=== PATIENT | female | born 1995 | race Caucasian/White ===

== ENCOUNTER 2019-11-02 06:18 | Emergency (ER) | payer BC, MEDICAID, SELFPAY ==
[2019-11-02 06:20] VITALS: BP 132/78; PULSE 71; RESP 18; TEMP 36.8; O2SAT 98; BMI 20.1
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
--- NOTE | 2019-11-02 07:10 | EKG12_ITS ---
Test Reason : MEDICAL CLEARANCE Blood Pressure : / mmHG Vent. Rate : 074 BPM Atrial Rate : 074 BPM P-R Int : 140 ms QRS Dur : 074 ms QT Int : 380 ms P-R-T Axes : 076 086 069 degrees QTc Int : 421 ms Normal sinus rhythm with sinus arrhythmia Normal ECG Confirmed by COLLEEN SOTELO, ÓSCAR ([id number]), social media editor MIL GTZ ([id number]) on 11/04/2019 10:52:15 AM Referred By: JUAN Confirmed By:ÓSCAR MACIAS MD
--- NOTE | 2019-11-02 07:10 | ED.RN ---
no suicide precautions per dr watters
[2019-11-02 07:24] LABS: Mucous, Urine 0 SEEN /hpf (<or=2+)
[2019-11-02 07:29] LABS: Color, Urine Yellow (Yellow); Glucose, Dipstick Normal (Normal); Ketone-Dipstick 15 mg/dl (Negative); Leukocyte Esterase-Dipstick 25 /ul (Negative); Nitrite-Dipstick Negative (Negative); Occult Blood-Urine 10 /ul (Negative); Protein-Dipstick Negative (Negative); Urine Bilirubin Dipstick Negative (Negative); Urine Clarity Sl. Cloudy (Clear); Urine Urobilinogen Normal (Normal)
[2019-11-02 07:37] LABS: Absolute Lymphocyte Count 1.17 X10^3/uL (0.83-4.51); Basophil# 0.04 X10^3/uL; Basophil% 0.7 % (0-1); Eosinophil# 0.06 X10^3/uL; Hematocrit 42.3 % (37-47); Hemoglobin 14.7 g/dL (12.0-15.0); Lymphocyte # 1.17 X10^3/ul (4.0); Lymphocyte % 20.3 % (19-41); Mean Corp Hgb Conc 34.8 g/dL (32-36); Mean Corpuscular Hgb 33.7 pg (27.0-32.0); Mean Platelet Vol. 9.3 fl (6.2-12.0); Monocyte# 0.49 X10^3/uL; Monocyte% 8.5 % (0-10); NRBC Flagged by Analyzer 0 % (0-5); Neutrophil % 69.3 % (47-70); Platelet Count 283 K/mm3 (150-450); Red Blood Count 4.36 M/mm3 (4.2-5.4); White Blood Count 5.8 K/mm3 (4.4-11.0)
[2019-11-02 07:38] LABS: Amphetamine Urine VISTA NEGATIVE (<1000 ng/mL); Barbiturate Urine VISTA NEGATIVE (< 200 ng/mL); Benzodiazepine Urine VISTA NEGATIVE (< 200 ng/mL); Cocaine Urine VISTA NEGATIVE (< 300 ng/mL); Ecstacy Urine VISTA NEGATIVE (< 500 ng/mL); Methadone Urine VISTA NEGATIVE (< 300 ng/mL); PCP Urine VISTA NEGATIVE (< 25 ng/mL); THC Urine VISTA POSITIVE (< 50 ng/mL); Vista UDS pH Range 5
--- NOTE | 2019-11-02 07:40 | NURSING ---
no old ekgs
[2019-11-02 07:42] LABS: Red Blood Cells-Urine 0-5 SEEN /hpf (0-5)
[2019-11-02 07:43] LABS: Bacteria 1+ /hpf (None Seen); Squamous Epithelial Cells - UA 0-5 SEEN /hpf (5-10); White Blood Cells 0-5 SEEN /hpf (0-5)
[2019-11-02 07:48] LABS: Internal QC Validated? YES +Cl - CLEAR BKGD; Pregnancy, Serum, hCG Quali. NEGATIVE Negative
--- NOTE | 2019-11-02 07:53 | ED.RN ---
PT VERY PARANOID IN ROOM. PT HYPERVENTILATING, WHEN ASKED WHY, PT STATES I AM READING ALL FACIAL EXPRESSIONS WRONG. THIS RN ATTEMPTS TO CALM PT. PT BEGINS TO CRY AND STATES MAYBE I CAN READ YOUR EYES. PT RESTING NOW, MOTHER AT BEDSIDE
[2019-11-02 07:59] LABS: Alcohol, Blood (Medical)-Serum < 3.0 mg/dL
[2019-11-02 08:01] LABS: ALB/GLOB Ratio 1.4 RATIO (0.9-2.4); AST(SGOT) 19 U/L (15-37); Alanine Aminotransfer ALT/SGPT 64 U/L (13-56); Alkaline Phosphatase 77 U/L (45-117); Anion Gap 6 (5-15); BUN 13 mg/dL (7-18); BUN/Creat Ratio 16.1 RATIO (10-20); Calcium,Total 9.4 mg/dL (8.5-10.1); Chloride 105 mmol/L (98-107); Creatinine, Serum 0.81 mg/dL (0.55-1.02); EST Glomerular Filtration Rate 91 mL/min (>60); Est Glom Filt Rate - Afr Amer 110 mL/min (>60); Estimated Creatinine Clearance 94.21 ml/min; Globulin 3.5 g/dL (2.2-4.2); Glucose 107 mg/dL (74-106); Potassium 3.5 mmol/L (3.5-5.1); Protein, Total 8.5 g/dL (6.4-8.2); Sodium Level 139 mmol/L (136-145); Thyroid Stim Hormone (TSH) 4.09 uIU/mL (0.358-3.74)
--- NOTE | 2019-11-02 08:15 | NURSING ---
FAXED CHART TO [facility].
[2019-11-02] MEDS: Ziprasidone IM 20 MG/ML VIAL IM (08:22)
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
--- NOTE | 2019-11-02 08:26 | NURSING ---
TIMUR ALEMAN, FOR DR MARTINEZ
[2019-11-02 08:31] VITALS: BP 124/72; PULSE 85; RESP 20; O2SAT 98
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
--- NOTE | 2019-11-02 08:55 | NURSING ---
ASH, [facility], TALKING TO PATIENT
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
--- NOTE | 2019-11-02 10:12 | ED.RN ---
RT ARM RESTRAINT REMOVED
--- NOTE | 2019-11-02 10:42 | ED.RN ---
all restraints removed. pt resting at this time
--- NOTE | 2019-11-02 11:38 | CM.ED ---
SOCIAL WORK Updated by Stephanie with [facility], referral is pending at [facility]. Nurse, Zuly updated.
--- NOTE | 2019-11-02 11:48 | NURSING ---
[facility], [address] DR HUERTA REPORT [phone]
[2019-11-02 12:00] VITALS: BP 100/50; PULSE 56; RESP 16; O2SAT 100
--- NOTE | 2019-11-02 13:15 | ED.RN ---
pt mother back at bedside. pt tearful but happy to see mother
== END 2019-11-02 15:39 ==
PROVIDERS: Emergency Provider Emergency Medicine; PCP Internal Medicine
DX: F22 Delusional disorders (principal); F43.10 Post-traumatic stress disorder, unspecified; F32.9 Major depressive disorder, single episode, unspecified; F41.9 Anxiety disorder, unspecified
CPT/HCPCS: 36415; 80053; 80307; 80320; 81001; 84443; 84703; 85025; 93005; 96372; 99283; G0480; J3486

== ENCOUNTER → 2020-03-04 | Outpatient (CLI) | payer BC, MEDICAID, SELFPAY | END | disposition home or self-care (01) | LOC: LABSPEC 12:29 | PROVIDERS: PCP Internal Medicine; Referring Provider Internal Medicine; Visit Provider Internal Medicine | DX: Z51.81 Encounter for therapeutic drug level monitoring (principal) | CPT/HCPCS: 80178 ==

== ENCOUNTER → 2021-01-05 | Outpatient (CLI) | payer MEDICAID, SELFPAY ==
[2021-01-06 14:55] LABS: M R Staph aureus DNA By PCR Negative (Negative); Probe Check PASS; Specimen Processing Control PASS; Staph aureus DNA By PCR NEGATIVE (Negative)
== END | disposition home or self-care (01) ==
LOC: LABSPEC 10:29
PROVIDERS: PCP Internal Medicine; Referring Provider Nurse Practitioner; Visit Provider Nurse Practitioner
DX: L02.416 Cutaneous abscess of left lower limb (principal)
CPT/HCPCS: 87640; 87641